=== PATIENT | male | born 1960 | race Caucasian/White ===

== ENCOUNTER 2018-05-12 08:01 | Day surgery (SDC) | payer OTHER ==
--- OUTSIDE RECORDS SUMMARY | 2018-05-12 08:09 | XMS REPORT ---
:1960 Author Organization eClinicalWorks Care Team Providers Name Role Phone Johnny Andre Provider Role Unavailable Allergies No Known Allergies Problems Problem Type Condition Code Onset Dates Condition Status Problem Adult BMI 34.0-34.9 kg/sq m Z68.34 Active Problem Generalized anxiety disorder F41.1 Active Problem Mixed hyperlipidemia E78.2 Active Assessment Mixed hyperlipidemia E78.2 Active Assessment Adult BMI 34.0-34.9 kg/sq m Z68.34 Active Assessment Generalized anxiety disorder F41.1 Active Medications Medication Code Code Instructions Start End Status Dosage System Date Date [place] I[facility] [id number] 300 MG Orally Active 3 tablet Carbonate ER Once a day at bedtime Results No Known Results Summary Purpose eClinicalWorks Submission
--- OUTSIDE RECORDS SUMMARY | 2018-05-12 08:09 | XMS REPORT ---
:1960 Author Organization eClinicalWorks Care Team Providers Name Role Phone Johnny [facility] Provider Role Unavailable Allergies, Adverse Reactions, Alerts Substance Reaction Event Type N.K.D.A. Info Not Available Non Drug Allergy Problems Problem Type Condition Code Onset Dates Condition Status Assessment Encounter for preventative adult Z00.01 Active health care exam with abnormal findings Assessment Screening for colon cancer Z12.11 Active Problem Generalized anxiety disorder F41.1 Active Assessment Encounter for screening for other Z11.59 Active viral diseases Assessment Generalized anxiety disorder F41.1 Active Medications Medication Code Code Instructions Start End Status Dosage System Date Date [facility] [id number] 300 MG Orally Active 3 tablet Carbonate ER Once a day at bedtime Results No Known Results Summary Purpose eClinicalWorks Submission
--- OUTSIDE RECORDS SUMMARY | 2018-05-12 08:09 | XMS REPORT ---
:1960 Author Organization eClinicalWorks Care Team Providers Name Role Phone Gopal Stallings Provider Role Unavailable Allergies, Adverse Reactions, Alerts Substance Reaction Event Type N.K.D.A. Info Not Available Non Drug Allergy Problems Problem Type Condition Code Onset Dates Condition Status Problem Adult BMI 34.0-34.9 kg/sq m Z68.34 Active Problem Generalized anxiety disorder F41.1 Active Problem Mixed hyperlipidemia E78.2 Active Assessment Encounter for screening colonoscopy Z12.11 Active Medications Medication Code Code Instructions Start End Status Dosage System Date Date [place] [facility] [id number] 300 MG Orally Active 3 tablet Carbonate ER Once a day at bedtime Results No Known Results Summary Purpose eClinicalWorks Submission
[2018-05-12] MEDS ORDERED: Ringers Lactate 1,000 ML IV ONE (08:15)
[2018-05-12] MEDS ORDERED: LIDOCAINE 2% INJ, MPF 2 ML 1 ML ONE (08:17)
[2018-05-12] MEDS ORDERED: PROPOFOL 200 MG/20 ML VIAL IV ONE ×2 (09:48→10:28)
--- NOTE | 2018-05-12 10:27 | ENDO RPT ---
[address], [address] COLONOSCOPY PROCEDURE REPORT EXAM DATE: 05/12/2018 PATIENT NAME: Russ David MR #: [id number] BIRTHDATE: 1960 ATTENDING: Gopal Stallings DR STATUS: outpatient COURIER DRIVER: Martha Catalan RN and George Naik [facility] INDICATIONS: The patient is a 57 yr old Male here for a colonoscopy due to family history of colon cancer and colon cancer screening PROCEDURE PERFORMED: Colonoscopy with biopsy - cold polypectomy MEDICATIONS: Per Anesthesia. ESTIMATED BLOOD LOSS: None CONSENT: The patient understands the risks and benefits of the procedure and understands that these risks include, but are not limited to: sedation, allergic reaction, infection, perforation and/or bleeding. Alternative means of evaluation and treatment include, among others: physical exam, x-rays, and/or surgical intervention. The patient elects to proceed with this endoscopic procedure. DESCRIPTION OF PROCEDURE: During intra-op preparation period all mechanical medical equipment was checked for proper function. Hand hygiene and appropriate measures for infection prevention was taken. Procedure, possible complications, alternatives including, but not limited to possibility of bleeding, perforation, tear, infection, sepsis, need for surgery, need for blood transfusion, were explained to the patient. After the risks, benefits and alternatives of the procedure were thoroughly explained, Informed consent was verified, confirmed and timeout was successfully executed by the treatment team. The patient was placed in the left lateral position. A digital rectal exam was performed and revealed an enlarged prostate, A digital rectal exam was performed and revealed external hemorrhoids, and A digital rectal exam was performed and revealed internal hemorrhoids. After appropriate level of anesthesia, the scope was passed. The [id number] ([id number]) endoscope was introduced through the anus and advanced to the cecum, which was identified by both the appendix and ileocecal valve. The quality of the prep was poor. The instrument was then slowly withdrawn as the colon was fully examined. Scope withdrawal time was 11 minutes. COLON FINDINGS: A small smooth sessile polyp was found in the right colon. A polypectomy was performed with cold forceps. The resection was complete, the polyp tissue was completely retrieved and sent to histology. Moderate sized internal and external hemorrhoids were found. Retroflexed views revealed no abnormalities. The scope was then completely withdrawn from the patient and the procedure terminated. ADVERSE EVENTS: There were no complications. IMPRESSIONS: 1. Small sessile polyp was found in the right colon; polypectomy was performed in a piecemeal fashion with cold forceps 2. Moderate sized internal and external hemorrhoids RECOMMENDATIONS: 1. avoid NSAIDS for 2 weeks 2. fiber rich diet 3. follow-up: office 2 week(s) 4. hemorrhoidal hygiene RECALL: Return in 3 year(s) for Colonoscopy, pending biopsy results. 2 Day prep on next colonoscopy Gopal Stallings DR eSigned: Gopal Stallings DR 05/12/2018 10:27 AM cc: CPT CODES: ICD9 CODES: PATIENT NAME: DavidRuss MR#: [id number]
== END 2018-05-12 10:59 | disposition home or self-care (01) ==
LOC: OR 08:01
PROVIDERS: ATTEND Surgery
PROC: 0DBF8ZX Excision of Right Large Intestine, Via Natural or Artificial Opening Endoscopic, Diagnostic (ICD-10-PCS; principal; 2018-05-12 10:00)
DX: Z12.11 Encounter for screening for malignant neoplasm of colon (principal); F41.1 Generalized anxiety disorder; K63.5 Polyp of colon; Z86.010 Personal history of colon polyps; Z80.0 Family history of malignant neoplasm of digestive organs; K64.4 Residual hemorrhoidal skin tags; K64.8 Other hemorrhoids
CPT/HCPCS: 88305; J3490